=== PATIENT | female | born 1970 | race Caucasian/White ===

== ENCOUNTER → 2017-09-21 | Outpatient (CLI) | payer OTHER ==
--- NOTE | 2017-09-21 12:52 | DIAGNOSTIC IMAGING REPORT ---
R HIP UNILATERAL 2 VIEWS CLINICAL HISTORY: Right hip pain. Recent fall. COMPARISON: None FINDINGS: No acute fracture of the proximal right femur is identified. A fracture of the right inferior pubic ramus is noted as well as a fracture of the medial right pubic bone. Fractures are likely subacute. No additional fractures are identified on this exam. IMPRESSION: 1. Minimally displaced fractures of the right inferior pubic ramus and medial right pubic bone. These fractures are likely subacute. 2. No fracture of the proximal right femur. Electronically signed by: Rodolfo Valerio M.D. 09/21/2017 12:50 PM Dictated Date/Time: 09/21/2017 12:49 PM
--- NOTE | 2017-09-21 12:53 | DIAGNOSTIC IMAGING REPORT ---
L KNEE 3 VIEWS CLINICAL HISTORY: Left knee pain. Recent fall. COMPARISON: None FINDINGS: Alignment of the left knee is anatomic. There is no acute fracture or joint effusion. There is moderate osteophytosis of the left knee with mild medial and patellofemoral compartment joint space narrowing. IMPRESSION: 1. No acute fracture or joint effusion of the left knee. 2. Moderate osteoarthritis of the left knee, most pronounced within the medial and patellofemoral compartments. Electronically signed by: Rodolfo Valerio M.D. 09/21/2017 12:51 PM Dictated Date/Time: 09/21/2017 12:50 PM
== END | disposition home or self-care (01) ==
LOC: C.RAD 11:14
PROVIDERS: ATTEND Internal Medicine
DX: M25.562 Pain in left knee (principal); M25.551 Pain in right hip; S32.501A Unspecified fracture of right pubis, initial encounter for closed fracture; X58.XXXA Exposure to other specified factors, initial encounter; M17.12 Unilateral primary osteoarthritis, left knee

== ENCOUNTER → 2018-05-19 | Outpatient (CLI) | payer OTHER ==
[~2018-05-19] MED LIST: CALC-51 PO; CALC8.5C PO; IBUP-1451 PO; MULT-506 PO
--- NOTE | 2018-05-19 10:56 | DIAGNOSTIC IMAGING REPORT ---
CHEST 2 VIEWS ROUTINE CLINICAL HISTORY: Preoperative evaluation. COMPARISON STUDY: No previous studies for comparison. FINDINGS: Lung volumes are normal. No pneumothorax or pleural effusion is noted. Cardiac size is normal. Mediastinal contours are normal. No evidence for pulmonary edema. There may be old left-sided rib fractures. Surgical clips project over the gastroesophageal junction. IMPRESSION: No acute cardiopulmonary findings. Electronically signed by: Rodolfo Valerio M.D. 05/19/2018 10:54 AM Dictated Date/Time: 05/19/2018 10:53 AM
[2018-05-19 11:09] LABS: BASO % 0.8 %; BASO ABS # 0.03 K/uL (0-0.2); EOS % 3.5 %; EOS ABS # 0.13 K/uL (0-0.5); HEMATOCRIT 36.5 % (37-47); HEMOGLOBIN 11.6 g/dL (12.0-16.0); IG# 0.01 K/uL (0.00-0.02); LYMPH % 40.9 %; MEAN CELL VOLUME 88.8 fL (80-100); MEAN CORPUSCULAR HEMOGLOBIN 28.2 pg (25-34); MEAN CORPUSCULAR HGB CONC 31.8 g/dl (32-36); MEAN PLATELET VOLUME 10.5 fL (7.4-10.4); MONO % 8.2 %; NEUT % 46.3 %; PLATELET COUNT 248 K/uL (130-400); RED CELL DISTRIBUTION WIDTH CV 13.5 % (11.5-14.5); WHITE BLOOD COUNT 3.67 K/uL (4.8-10.8)
[2018-05-19 11:23] LABS: PTT PATIENT 25.2 SECONDS (21.0-31.0)
[2018-05-19 11:47] LABS: BLOOD UREA NITROGEN 14 mg/dl (7-18); CALCIUM 8.1 mg/dl (8.5-10.1); CARBON DIOXIDE 29 mmol/L (21-32); CREATININE 0.59 mg/dl (0.60-1.20); GLUCOSE 71 mg/dl (70-99); POTASSIUM 3.8 mmol/L (3.5-5.1); SODIUM 141 mmol/L (136-145)
== END | disposition home or self-care (01) ==
LOC: C.CPL 09:17
PROVIDERS: ATTEND Orthopaedic Surgery
DX: Z01.810 Encounter for preprocedural cardiovascular examination (principal); Z01.812 Encounter for preprocedural laboratory examination; Z01.818 Encounter for other preprocedural examination

== ENCOUNTER 2019-01-16 09:59 | Inpatient (IN) ==
--- NOTE | 2018-12-16 15:11 | Anesthesiology Consultation ---
Date of Service December 16, 2018 Assessment & Plan (1) Encounter for pre-operative examination: Chart Review Chart Review: Acceptable Risk for Surgery and Patient seen in Pre Admission Testing Teaching & Discussion Instructed NPO after midnight before surgery, except medications with 15 cc of water. Medication instructions provided according to the PAT guidelines. History Surgery Operation Date: 01/16/19 10:00 Proposed Procedures p Bilateral Total Knee Arthroplasty - Augusto Gonzalez DO Height/Weight Height: 5 ft 9 in Weight: 84.4 kg Allergies Allergy/AdvReac Type Severity Reaction Status Date / Time No Known Allergies Allergy Unverified 12/10/18 14:56 Medications Home Medications Medication Instructions Recorded Confirmed Last Taken bupropion HCl [Wellbutrin XL] 300 mg PO QAM 12/10/18 12/10/18 12/10/18 calcium carbonate [Calcium 500] 500 mg PO BID 12/10/18 12/10/18 Unknown citalopram [Celexa] 20 mg PO HS 12/10/18 12/10/18 12/09/18 ferrous sulfate 325 mg PO DAILY 12/10/18 12/10/18 Unknown hydrocodone-acetaminophen 1 - 2 tab PO UD PRN 12/10/18 12/10/18 Unknown ibuprofen [Motrin IB] 800 mg PO UD PRN 12/10/18 12/10/18 Unknown multivitamin [Multiple Vitamins] 1 tab PO DAILY 12/10/18 12/10/18 Unknown ropinirole [Requip] 1 mg PO HS 12/10/18 12/10/18 12/09/18 tramadol 50 mg PO UD PRN 12/10/18 12/10/18 Unknown Past Medical History Medical History Anxiety and depression Low iron Osteoarthritis Restless leg syndrome Past Family History Family History Mother Family history of breast cancer Father Family history of throat cancer Past Surgical History Surgical History Fatty tumor REMOVED R ANKLE History of gastric bypass History of tubal ligation Past Anesthesia History No Hx of Anesthesia Complications and No Family Hx of Anesthesia Complications History of PONV No Motion Sickness Screening History of Motion Sickness: No Social History Smoking Status: Former smoker tobacco type: cigarettes Do You Dip or Chew Tobacco: No Smoking End Date: QUIT 2016 Hx Alcohol Use: No Hx Substance Use: No substance use type: does not use Exercise / Class Metabolic Activity II 4-5 Yardwork/Stairs/Walk up hill (denies CP or SOB, limited by knee pain) Review of Systems Pt denies any recent chest pain, shortness of breath, palpitations, cough, fever or URI. Physical Exam Vital Signs BP: 93/60 (pt states this is baseline) P: 68bpm SPO2: 99% RA T: 98.3 F R: 16 ENMT Mouth: + dentures (FULL UPPER); no chipped teeth and no loose teeth Thyromental Distance: < 3.5 Finger Breadths (3) Mallampati Class: II Neck normal visual inspection; neck extension not limited Respiratory normal respiratory effort Auscultation: lungs clear to auscultation bilaterally Cardiovascular Rate/Rhythm: regular rate and regular rhythm Heart Sounds: no murmur Vessels: no carotid bruit Extremities: no edema Testing Electrocardiogram Date: 12/16/18 Findings: + NSR @ (62 with short OK) Chest X-Ray Date: 05/19/18 Findings: + NAD Laboratory Results 12/16/18 15:52 12/16/18 15:52 Blood Type A Positive 12/16/18 15:52 Antibody Screen NEGATIVE 12/16/18 15:52 PT 10.4 Seconds (9.0-12.0) 12/16/18 15:52 INR 1.0 (0.9-1.1) 12/16/18 15:52 APTT 24.2 Seconds (21.0-31.0) 12/16/18 15:52
--- NOTE | 2018-12-16 15:13 | PAT Medication Instructions ---
Medication Instructions Date of Service December 16, 2018 Home Medications bupropion HCl [Wellbutrin XL] 300 mg PO QAM calcium carbonate [Calcium 500] 500 mg PO BID citalopram [Celexa] 20 mg PO HS ferrous sulfate 325 mg PO DAILY hydrocodone-acetaminophen 1 - 2 tab PO UD PRN ibuprofen [Motrin IB] 800 mg PO UD PRN multivitamin [Multiple Vitamins] 1 tab PO DAILY ropinirole [Requip] 1 mg PO HS tramadol 50 mg PO UD PRN ASK your surgeon for instructions ibuprofen [Motrin IB] 800 mg PO UD PRN STOP taking 24 hours before surgery ropinirole [Requip] 1 mg PO HS DO NOT take the morning of surgery calcium carbonate [Calcium 500] 500 mg PO BID ferrous sulfate 325 mg PO DAILY multivitamin [Multiple Vitamins] 1 tab PO DAILY Take morning of surgery With a small sip of water, OTHERWISE NOTHING TO EAT OR DRINK AFTER MIDNIGHT: bupropion HCl [Wellbutrin XL] 300 mg PO QAM hydrocodone-acetaminophen 1 - 2 tab PO UD PRN (if needed, may be taken up to four hours before surgery) tramadol 50 mg PO UD PRN (if needed, may be taken up to four hours before surgery) Take evening before surgery calcium carbonate [Calcium 500] 500 mg PO BID citalopram [Celexa] 20 mg PO HS hydrocodone-acetaminophen 1 - 2 tab PO UD PRN (if needed) tramadol 50 mg PO UD PRN (if needed) Other Notes If you have any questions please call us at [phone] or [phone] or [phone] or [phone]
[2018-12-16 16:13] LABS: Basophils # (auto) 0.02 K/uL (0-0.2); Basophils % (auto) 0.5 %; Eosinophils % (auto) 2.5 %; Hematocrit (blood only) 33.8 % (37-47); Lymphocytes % (auto) 35.2 %; Mean Corpuscular Hgb Conc 32.5 g/dL (32-36); Mean Corpuscular Volume 90.1 fL (80-100); Monocytes % (auto) 10.1 %; Neutrophils # (auto) 2.06 K/uL (1.4-6.5); Neutrophils % (auto) 51.7 %; Platelet Count 248 K/uL (130-400); RDW Coefficient of Variation 13.5 % (11.5-14.5); RDW Standard Deviation 44.7 fL (36.4-46.3); Red Blood Count 3.75 M/uL (4.2-5.4); White Blood Count 3.98 K/uL (4.8-10.8)
[2018-12-16 16:22] LABS: BUN Creatinine Ratio 32.7 (10-20); Calcium 8.2 mg/dl (8.5-10.1); Creatinine Clr Calc Pharmacy 130.1 ml/min; Est GFR (African American) 123.2; Est GFR (Non-African American) 106.3; Potassium 3.6 mmol/L (3.5-5.1)
[2018-12-16 16:25] LABS: Partial Thromboplastin Ratio 0.9; Partial Thromboplastin Time 24.2 Seconds (21.0-31.0); Prothrombin Time 10.4 Seconds (9.0-12.0)
--- NOTE | 2019-01-15 21:05 | History & Physical Report ---
Date of Service January 15, 2019 Assessment & Plan (1) Primary osteoarthritis of knees, bilateral: We will proceed with bilateral total knee arthroplasties. Postoperatively she will be placed on aspirin for DVT prophylaxis. We talked about her gastric bypass surgery and we feel it is safe to take a baby aspirin. Postoperatively she will be kept overnight for medical management. She plans to have social worker palliative care help determine postoperative nursing care and physical therapy. Present on Admission?: Yes History of Present Illness Chief Complaint: Primary osteoarthritis of bilateral knees Primary Care Provider: JESSICA Hanks is a pleasant 48-year-old female who is been dealing with chronic increasing bilateral knee pain for many years. X-rays and clinical examination have been diagnostic for primary osteoarthritis of both knees. After failing extensive conservative treatment, she is elected to proceed with bilateral total knee arthroplasty. Allergies Allergy/AdvReac Type Severity Reaction Status Date / Time No Known Allergies Allergy Unverified 12/10/18 14:56 Home Medications Home Medications Medication Instructions Recorded Confirmed Type bupropion HCl [Wellbutrin XL] 300 mg PO QAM 12/10/18 12/10/18 History calcium carbonate [Calcium 500] 500 mg PO BID 12/10/18 12/10/18 History citalopram [Celexa] 20 mg PO HS 12/10/18 12/10/18 History ferrous sulfate 325 mg PO DAILY 12/10/18 12/10/18 History hydrocodone-acetaminophen 1 - 2 tab PO UD PRN 12/10/18 12/10/18 History ibuprofen [Motrin IB] 800 mg PO UD PRN 12/10/18 12/10/18 History multivitamin [Multiple Vitamins] 1 tab PO DAILY 12/10/18 12/10/18 History ropinirole [Requip] 1 mg PO HS 12/10/18 12/10/18 History tramadol 50 mg PO UD PRN 12/10/18 12/10/18 History Past Med/Surg History Medical History Anxiety and depression Low iron Osteoarthritis Restless leg syndrome Surgical History Fatty tumor REMOVED R ANKLE History of gastric bypass History of tubal ligation Family History Mother Family history of breast cancer Father Family history of throat cancer Social History Preferred Language: Estonian Communication Ability: Effective Diamond Assorter Required: No Beliefs That Will Affect Care: None Current Living Situation: Other Current Living Situation Comment: LIVES WITH GRANDAUAMY Other Information That Helps Us Care for You: No Feels Safe at Home: Yes Smoking Status: Former smoker Hx Alcohol Use: No Hx Substance Use: No Review of Systems All systems reviewed & are unremarkable except as noted in HPI & below Physical Exam Constitutional: WD/WN, vitals as above Eyes: PERRL, conjunctivae normal, anicteric sclerae ENMT: external ear and nose normal, oropharynx normal Neck: trachea midline, no thyromegaly Respiratory: normal respiratory effort Cardiovascular: RRR, no murmur, no edema Gastrointestinal (Abdomen): normal bowel sounds, soft, nontender, no hepatosplenomegaly Musculoskeletal: On physical examination of both knees, there is a trace effusion. There is near full range of motion and no evidence of instability. There is significant tenderness palpation along the medial and lateral joint lines and over the distal femoral condyles. Psychiatric: A+Ox3, euthymic affect Results & Data Diagnostic Findings Radiographs of both knees demonstrate advanced osteoarthritis with joint space narrowing osteophyte formation and [id number] articulation.
[~2019-01-16 09:59] MED LIST changes: +ACETAMINOPHEN 500 MG TAB PO SCH; +ATROPINE SULFATE 0.1 MG/ML 10ML SYR IV PRN; +BUPIVACAINE 0.5 % 5 MG/1 ML PF 10ML VIAL ONE; -CALC-51 PO; -CALC8.5C PO; +CEFAZOLIN 2000MG 2,000 MG/15 ML SYR IV SCH; +FAMOTIDINE 20 MG TAB PO SCH; +GABAPENTIN 300 MG x 3 PO SCH; -IBUP-1451 PO; +LR 500ML BOLUS, THEN 15ML/HR IV SCH; +LR 60ML/HR IV SCH; -MULT-506 PO; +ONDANSETRON INJ 2 MG/ML 2 ML VIAL IV PRN; +ROPIVACAINE 0.5% 5 MG/ML 30 ML VIAL ONE; +ROPIVACAINE 0.5% HCL/PF 150 MG, BUPIVACAINE 0.5% MPF 30 ML, EPINEPHrine 30MG/30ML (OR U... INFIL SCH; +TRANEXAMIC ACID 1,000 MG **IV Intra-op IV SCH; +TRANEXAMIC ACID 1,000 MG **IV Pre-op IV SCH; +ePHEDrine sulfate 50 MG/ML AMP IV PRN; +fentaNYL citrate 100 MCG/2 ML VIAL IV PRN
[2019-01-16] MEDS ORDERED: MIDAZOLAM HCL 1 MG/ML 2ML VIAL ONE ×2 (10:08→12:30)
[2019-01-16] MEDS ORDERED: LIDOCAINE HCL 2% 2 ML VIAL/AMP(20MG/ML) INFIL ONE (10:08)
[2019-01-16] MEDS ORDERED: PROPOFOL IV EMULSION 10 MG/ML 20 ML VIAL IV ONE ×5 (10:08→15:29)
[2019-01-16] MEDS ORDERED: fentaNYL citrate 100 MCG/2 ML VIAL ONE ×4 (10:08→15:45)
--- NOTE | 2019-01-16 11:08 | History & Physical Bridge Note ---
Date of Service January 16, 2019 History & Physical Bridge Note I have examined the patient, reviewed the History & Physical and in the interval since the performance of the History & Physical I have noted the following changes of clinical significance: no changes noted
[2019-01-16] MEDS ORDERED: POVIDONE-IODINE OP SOLN 30 ML BTL ONE (11:42)
[2019-01-16] MEDS ORDERED: ONDANSETRON INJ 2 MG/ML 2 ML VIAL ONE (12:56)
[2019-01-16] MEDS: ORTHO JOINT ANESTHETIC ONE ×2 (13:40→15:09)
[2019-01-16] MEDS ORDERED: PHENYLEPHRINE 100MCG/ML 5ML SYR ONE (14:20)
--- NOTE | 2019-01-16 15:32 | Operative Report ---
Post Operative Report Pre & Post Diagnosis Operation Date: 01/16/19 12:55 Pre-Op Diagnosis: Bilateral Knee Degenerative Joint Disease Post-Op Diagnosis: Bilateral Knee Degenerative Joint Disease Procedure Operation Date: 01/16/19 12:55 Actual Procedures p Bilateral Total Knee Arthroplasty(Bilateral) - Augusto Gonzalez DO Surgeon Augusto Gonzalez DO Workforce Development Assistant Augusto Tavares PAC Estimated Blood Loss 50 Findings Consistent with Post-Op Diagnosis Specimens Right and left femoral and tibial bone Complications none Disposition Disposition: Recovery Room Indications Margie is a pleasant 48-year-old female presented my office with complaints of chronic increasing bilateral knee pain. X-rays and clinical examination were diagnostic for primary osteoarthritis of both knees. After failing years of conservative treatment including multiple injections, she elected to proceed with bilateral total knee arthroplasties. Description of Procedure Implants used for the right knee: I used a [employer] Vanguard total knee arthroplasty system with a size 75 femur, 71 tibia, 28 patella, and a size 10 PS polyethylene bearing. All components were cemented in place with Palacos G cement. The patient arrived [facility] for the above procedure. There were seen in the preoperative holding area and the operative extremity was identified and signed. There were given a preoperative antibiotic, a spinal anesthetic and an adductor nerve block. There were taken back to the operating room and laid on the table in supine position. There were given basic sedation. The operative knee was then prepped and draped in sterile fashion. A timeout was done, and the patient and the operative extremity was properly identified. A midline incision was made directly over the patella. Dissection was taken down to the extensor mechanism. A subvastus arthrotomy was used. The medial retinaculum was released and the fat pad was mostly left intact. The knee was flexed and the ACL, PCL, and meniscus were removed. A drill was sent down the center of the femoral canal followed by an intramedullary elieser. Off that elieser a distal femoral cutting block was placed. 9 mm was resected off the distal femur at 5 of valgus. A posterior referencing AP sizing guide was then placed on the distal femur. The femur measured to be a size 75. 2 drill holes were placed in 3 of external rotation. A 4-in-1 cutting block was then impacted into place. Anterior posterior and chamfer cuts were then made. The posterior stabilizing box guide was then impacted into place and the box was resected for the posterior stabilizing component. The proximal tibia was then exposed. A drill was sent down the center of the tibial canal followed by an intramedullary elieser. Off that elieser a proximal tibial resection guide was placed. The proximal tibia was then resected. The tibia measured to be a size 71. The tibial plate was then placed in the appropriate rotation and the tibia was punched. The posterior aspect of the knee was then opened up and any additional meniscus fragments and osteophytes were removed. Trial components were then placed. I used a size 10 PS polyethylene insert. The knee was brought through a full range of motion and felt to be stable. The patella was then everted and 8 mm was resected off the posterior aspect of the patella. The patella measured to be a size 28. 3 peg holes were then drilled. A trial patella was placed. The knee was once again brought through a full range of motion and felt to be stable. Trial components were then removed. The surrounding soft tissues were injected with 100 cc of an orthopedic pain control cocktail. All components were then cemented into place with Palacos G cement. The final polyethylene insert was then snapped into place and the anterior bar was locked. Once cement was dry the tourniquet was deflated. Hemostasis was obtained. A dilute betadyne lavage was then done for 3 minutes. The joint was then irrigated with normal saline solution. The subvastus arthrotomy was then closed with #1 Vicryl suture. The skin was closed with 2-0 Vicryl, 3-0V lock suture, and lidia. A soft compressive dressing was placed. The patient was then transferred to a hospital bed and taken to the postanesthesia care unit in stable condition. They tolerated the procedure well. Implants used for the left knee: I used a [employer]og[employer] total knee arthroplasty system with a size 72.5 femur, 71 tibia, 28 patella, and a size 12 PS polyethylene bearing. All components were cemented in place with Palacos G cement. A midline incision was made directly over the patella. Dissection was taken down to the extensor mechanism. A subvastus arthrotomy was used. The medial retinaculum was released and the fat pad was mostly left intact. The knee was flexed and the ACL, PCL, and meniscus were removed. A drill was sent down the center of the femoral canal followed by an intramedullary elieser. Off that elieser a distal femoral cutting block was placed. 9 mm was resected off the distal femur at 5 of valgus. A posterior referencing AP sizing guide was then placed on the distal femur. The femur measured to be a size 72.5. 2 drill holes were placed in 3 of external rotation. A 4-in-1 cutting block was then impacted into place. Anterior posterior and chamfer cuts were then made. The posterior stabilizing box guide was then impacted into place and the box was resected for the posterior stabilizing component. The proximal tibia was then exposed. A drill was sent down the center of the tibial canal followed by an intramedullary elieser. Off that elieser a proximal tibial resection guide was placed. The proximal tibia was then resected. The tibia measured to be a size 71. The tibial plate was then placed in the appropriate rotation and the tibia was punched. The posterior aspect of the knee was then opened up and any additional meniscus fragments and osteophytes were removed. Trial components were then placed. I used a size 12 PS polyethylene insert. The knee was brought through a full range of motion and felt to be stable. The patella was then everted and 8 mm was resected off the posterior aspect of the patella. The patella measured to be a size 28. 3 peg holes were then drilled. A trial patella was placed. The knee was once again brought through a full range of motion and felt to be stable. Trial components were then removed. The surrounding soft tissues were injected with 100 cc of an orthopedic pain control cocktail. All components were then cemented into place with Palacos G cement. The final polyethylene insert was then snapped into place and the anterior bar was locked. Once cement was dry the tourniquet was deflated. Hemostasis was obtained. A dilute betadyne lavage was then done for 3 minutes. The joint was then irrigated with normal saline solution. The subvastus arthrotomy was then closed with #1 Vicryl suture. The skin was closed with 2-0 Vicryl, 3-0V lock suture, and lidia. A soft compressive dressing was placed. The patient was then transferred to a hospital bed and taken to the postanesthesia care unit in stable condition. They tolerated the procedure well. I attest to the content of the Intraoperative Record and any orders documented therein. Any exceptions are noted below.
--- NOTE | 2019-01-16 16:18 | Anesthesiology Progress Note ---
Date of Service January 16, 2019 Anesthesia Post Procedure Vital Signs Vital Signs: Temp Pulse Pulse Resp BP Pulse Ox 01/16/19 16:10 61 15 91/59 L 100 01/16/19 16:01 36.0 C L 71 14 86/63 L 97 01/16/19 10:32 36.7 C 63 16 110/72 100 Notes Mental Status: alert / awake / arousable Patient Amnestic to Procedure: Yes Nausea / Vomiting: adequately controlled Pain: adequately controlled Airway Patency, RR, SpO2: stable & adequate BP & HR: stable & adequate Hydration State: stable & adequate Neuraxial Anesthesia: was administered and sensory block is resolving Anesthetic Complications: no major complications apparent and Pt Satisfied with anesthetic care
--- NOTE | 2019-01-16 16:23 | XRay Report ---
XR knee RT 2V routine CLINICAL HISTORY: Surgical Post Op COMPARISON: Right knee radiographs April 21, 2012. FINDINGS: Alignment of the right knee arthroplasty is anatomic. There is no fracture or unexpected r adiopaque foreign body. There are skin lidia. IMPRESSION: Expected findings following total right knee arthroplasty. Electronically signed by: Rodolfo Valerio M.D. 01/16/2019 4:21 PM
--- NOTE | 2019-01-16 16:25 | XRay Report ---
XR knee LT 2V routine CLINICAL HISTORY: Surgical Post Op COMPARISON: Left knee radiographs September 21, 2017. FINDINGS: Alignment of the left knee arthroplasty is anatomic. There is no fracture or unexpected ra diopaque foreign body. There are skin lidia. IMPRESSION: Expected findings following total left knee arthroplasty. Electronically signed by: Rodolfo Valerio M.D. 01/16/2019 4:23 PM
[2019-01-16] MEDS ORDERED: HYDROmorphone INJ 0.5 MG/0.5 ML SYR IV PRN (16:37)
[2019-01-16] MEDS ORDERED: ONDANSETRON INJ 2 MG/ML 2 ML VIAL IV PRN (16:37)
[2019-01-16] MEDS ORDERED: METOCLOPRAMIDE HCL INJ 5 MG/ML 2 ML VIAL IV PRN (16:37)
[2019-01-16] MEDS ORDERED: MAGNESIUM HYDROXIDE SUSP 30 ML UDC PO PRN (16:37)
[2019-01-16] MEDS ORDERED: BISACODYL 10 MG SUPP PR PRN (16:37)
[2019-01-16] MEDS ORDERED: NALOXONE HCL 0.4 MG/1 ML VIAL/CARP IV PRN (16:37)
[2019-01-16] MEDS: SODIUM CHLORIDE 0.9% 1000ML 1,000 ML IV SCH (18:12)
[2019-01-16] MEDS: KETOROLAC TROMETHAMINE 15 MG/ML VIAL IV SCH ×2 (18:14→23:30)
[2019-01-16] MEDS: CITALOPRAM 20 MG TAB PO SCH (20:48)
[2019-01-16] MEDS: ROPINIROLE HCL 1 MG TABLET PO SCH (20:48)
[2019-01-16] MEDS: SENNA 8.6 MG TAB PO SCH (20:48)
[2019-01-16] MEDS: ASPIRIN 81 MG ECTAB PO SCH (20:48)
[2019-01-16] MEDS: CEFAZOLIN 2000MG 2,000 MG/15 ML SYR IV SCH (20:48)
[2019-01-16] MEDS: DOCUSATE SODIUM 100 MG CAP PO SCH (20:48)
[2019-01-16] MEDS: ACETAMINOPHEN 500 MG TAB PO SCH (21:17)
[2019-01-17] MEDS: OXYCODONE HCL IR 5 MG TAB (IMMEDIATE RELEASE) PO PRN ×4 (02:31→23:25)
[2019-01-17] MEDS: CEFAZOLIN 2000MG 2,000 MG/15 ML SYR IV SCH (03:45)
[2019-01-17] MEDS: SODIUM CHLORIDE 0.9% 1000ML 1,000 ML IV SCH (04:17)
[2019-01-17] MEDS: ACETAMINOPHEN 500 MG TAB PO SCH ×3 (05:42→22:10)
[2019-01-17] MEDS: KETOROLAC TROMETHAMINE 15 MG/ML VIAL IV SCH ×3 (05:42→17:41)
[2019-01-17 06:01] LABS: Hematocrit (blood only) 27.8 % (37-47); Hemoglobin 9.2 g/dL (12.0-16.0); Mean Corpuscular Hgb Conc 33.1 g/dL (32-36); Mean Corpuscular Volume 90.6 fL (80-100); Mean Platelet Volume 9.6 fL (7.4-10.4); Platelet Count 173 K/uL (130-400); RDW Coefficient of Variation 13.3 % (11.5-14.5); RDW Standard Deviation 43.9 fL (36.4-46.3); Red Blood Count 3.07 M/uL (4.2-5.4)
[2019-01-17 06:32] LABS: BUN Creatinine Ratio 25.4 (10-20); Calcium 7.3 mg/dl (8.5-10.1); Creatinine Clr Calc Pharmacy 139.7 ml/min; Est GFR (Non-African American) 108.7; Potassium 3.9 mmol/L (3.5-5.1)
[2019-01-17] MEDS: BuPROPion XL 300 MG TABCR PO SCH (08:39)
[2019-01-17] MEDS: ASPIRIN 81 MG ECTAB PO SCH ×2 (08:39→21:00)
[2019-01-17] MEDS: DOCUSATE SODIUM 100 MG CAP PO SCH ×2 (08:39→21:01)
[2019-01-17] MEDS: MULTIVITAMIN TAB PO SCH (08:39)
--- NOTE | 2019-01-17 09:18 | Orthopedic Progress Note ---
Date of Service January 17, 2019 Assessment & Plan (1) Primary osteoarthritis of knees, bilateral: Overall she is doing fairly well. She will be seen by physical therapy this morning for ambulation and range of motion exercises. Her pain is well controlled at this time. Tomorrow will change the dressings and likely discharge her to home. She is on aspirin for DVT prophylaxis. Present on Admission?: Yes Anushka Hanson was seen and examined at bedside this morning. Overall she is doing very well. She is not having too much pain in the knees. They are a little bit sore. She is been up and ambulating to the bathroom. She is waiting for physical therapy this morning. She has no complaints. Physical Exam Vital Signs (Past 24 Hours): Last Vital Signs Temp 37 C 01/17/19 07:13 Pulse 81 01/17/19 07:13 Resp 18 01/17/19 07:13 BP 92/54 L 01/17/19 07:13 Pulse Ox 95 01/17/19 07:13 Musculoskeletal: On physical examination of both knees, the dressings are clean and dry. She has active dorsiflexion and plantar flexion of both ankles. She still is a little bit of numbness in her right foot from the block. Results & Data Laboratory Results H & H 12/16/18 01/17/19 Range/Units 15:52 05:45 Hgb 11.0 L 9.2 L (12.0-16.0) g/dL Hct 33.8 L 27.8 L (37-47) % Coagulation 12/16/18 Range/Units 15:52 INR 1.0 (0.9-1.1) Diagnostic Findings X-rays postoperatively of both knees show the prosthesis to be in anatomic alignment without any evidence of fracture, dislocation, or loosening.
--- NOTE | 2019-01-17 13:25 | Anesthesiology Progress Note ---
Date of Service January 17, 2019 Anesthesia Post Procedure Vital Signs Vital Signs: Temp Pulse Pulse Resp BP BP Pulse Ox 01/17/19 10:48 37.1 C 88 18 90/56 L 94 01/17/19 07:13 37 C 81 18 83/50 L 92/54 L 95 01/17/19 03:50 36.6 C 74 16 91/52 L 97 01/16/19 23:44 36.8 C 83 15 94/57 L 95 01/16/19 19:30 36.7 C 86 18 101/65 95 01/16/19 18:30 36.5 C 79 18 106/68 98 01/16/19 17:30 36.3 C L 62 18 105/71 97 01/16/19 17:12 36.3 C L 60 18 105/70 99 01/16/19 16:30 36.3 C L 66 18 96/59 L 97 01/16/19 16:20 36.3 C L 59 L 14 97/62 L 96 01/16/19 16:10 61 15 91/59 L 100 01/16/19 16:01 36.0 C L 71 14 86/63 L 97 Pain Intensity Right Knee: Pain Intensity: 7 Left Knee: Pain Intensity: 2 Notes Mental Status: alert / awake / arousable Patient Amnestic to Procedure: Yes Nausea / Vomiting: adequately controlled Pain: adequately controlled Airway Patency, RR, SpO2: stable & adequate BP & HR: stable & adequate Hydration State: stable & adequate Neuraxial Anesthesia: was administered and sensory block resolved Anesthetic Complications: no major complications apparent and Pt Satisfied with anesthetic care
[2019-01-17] MEDS ORDERED: TRAMADOL HCL 50 MG TABLET PO PRN (13:34)
[2019-01-17] MEDS: ROPINIROLE HCL 1 MG TABLET PO SCH ×2 (14:39→20:59)
[2019-01-17] MEDS: SENNA 8.6 MG TAB PO SCH (21:00)
[2019-01-17] MEDS: CITALOPRAM 20 MG TAB PO SCH (21:01)
[2019-01-18] MEDS: KETOROLAC TROMETHAMINE 15 MG/ML VIAL IV SCH ×3 (00:20→12:01)
[2019-01-18] MEDS: ACETAMINOPHEN 500 MG TAB PO SCH ×2 (05:16→14:39)
[2019-01-18] MEDS: OXYCODONE HCL IR 5 MG TAB (IMMEDIATE RELEASE) PO PRN ×3 (05:57→15:59)
[2019-01-18 06:05] LABS: Basophils # (auto) 0.01 K/uL (0-0.2); Basophils % (auto) 0.1 %; Eosinophils # (auto) 0.09 K/uL (0-0.5); Eosinophils % (auto) 1.2 %; Hematocrit (blood only) 27.2 % (37-47); Hemoglobin 8.9 g/dL (12.0-16.0); Immature Granulocytes # (auto) 0.01 K/uL (0.00-0.02); Immature Granulocytes % (auto) 0.1 %; Lymphocytes # (auto) 0.81 K/uL (1.2-3.4); Lymphocytes % (auto) 10.5 %; Mean Corpuscular Hgb Conc 32.7 g/dL (32-36); Mean Corpuscular Volume 91.3 fL (80-100); Mean Platelet Volume 9.5 fL (7.4-10.4); Monocytes # (auto) 0.86 K/uL (0.11-0.59); Monocytes % (auto) 11.2 %; Neutrophils # (auto) 5.92 K/uL (1.4-6.5); Neutrophils % (auto) 76.9 %; Platelet Count 175 K/uL (130-400); RDW Coefficient of Variation 13.7 % (11.5-14.5); RDW Standard Deviation 45.6 fL (36.4-46.3); Red Blood Count 2.98 M/uL (4.2-5.4)
[2019-01-18 06:32] LABS: RBC Morphology Unremarkable
--- NOTE | 2019-01-18 09:19 | Orthopedic Progress Note ---
Date of Service January 18, 2019 Assessment & Plan (1) Primary osteoarthritis of knees, bilateral: Overall she is doing okay. She will be seen by physical therapy today for ambulation. She was requesting discharge to home today. I told her that that is unlikely at this time. I want to see how she does with physical therapy first. If she does very well with physical therapy then we can consider sending her home later this afternoon. More likely, we will keep her throughout the day today and send her home tomorrow. We will see how she does today with therapy. We will continue oxycodone and tramadol for pain control. She is on aspirin for DVT prophylaxis. Present on Admission?: Yes Anushka Hanson was seen and examined at bedside this morning. She is been slow to ambulate with physical therapy. She was just about to leave the room yesterday when she was lightheaded and had a panic attack. They slowly brought her back to bed. Later in the day she was able to ambulate to a chair and sit up in a chair for most the day. Overall she is feeling better. We have had difficulty balancing pain medications with her hypotension. Overall she is feeling okay today. And she is looking forward to getting some more physical therapy. Physical Exam Vital Signs (Past 24 Hours): Last Vital Signs Temp 36.8 C 01/18/19 07:10 Pulse 70 01/18/19 07:10 Resp 18 01/18/19 07:10 BP 94/57 L 01/18/19 07:10 Pulse Ox 96 01/18/19 07:10 Musculoskeletal: On physical examination of both knees, the dressings have been changed. Her legs are out in full extension. She has [place] hose stockings in place. She is active dorsiflexion and plantar flexion of both ankles. Sensation is intact throughout. Results & Data Laboratory Results H & H 12/16/18 01/17/19 01/18/19 Range/Units 15:52 05:45 05:53 Hgb 11.0 L 9.2 L 8.9 L (12.0-16.0) g/dL Hct 33.8 L 27.8 L 27.2 L (37-47) % Coagulation 12/16/18 Range/Units 15:52 INR 1.0 (0.9-1.1)
[2019-01-18] MEDS: ROPINIROLE HCL 1 MG TABLET PO SCH (09:25)
[2019-01-18] MEDS: MULTIVITAMIN TAB PO SCH (09:26)
[2019-01-18] MEDS: ASPIRIN 81 MG ECTAB PO SCH (09:27)
[2019-01-18] MEDS: BuPROPion XL 300 MG TABCR PO SCH (09:29)
[2019-01-18] MEDS: DOCUSATE SODIUM 100 MG CAP PO SCH (09:29)
[2019-01-18 15:23] VITALS: TEMP 99.9; O2SAT 93
[2019-01-18 15:42] VITALS: BP 93/57; PULSE 84
--- NOTE | 2019-01-18 19:46 | Discharge Summary ---
Date of Service January 18, 2019 Admission HPI Per Admitting Provider Davin is a pleasant 48-year-old female who is been dealing with chronic increasing bilateral knee pain for many years. X-rays and clinical examination have been diagnostic for primary osteoarthritis of both knees. After failing extensive conservative treatment, she is elected to proceed with bilateral total knee arthroplasty. Specialty Data Orthopedic H & H 12/16/18 01/17/19 01/18/19 Range/Units 15:52 05:45 05:53 Hgb 11.0 L 9.2 L 8.9 L (12.0-16.0) g/dL Hct 33.8 L 27.8 L 27.2 L (37-47) % Coagulation 12/16/18 Range/Units 15:52 INR 1.0 (0.9-1.1) Discharge Data Consultations 01/16/19 16:37 Consult Case Management - Discharge Planning Routine Procedures Performed Operation Date: 01/16/19 12:55 Actual Procedures p Bilateral Total Knee Arthroplasty(Bilateral) - Augusto Gonzalez DO Hospital Course (1) Primary osteoarthritis of knees, bilateral: On January 16, 2019: Appeared at [facility] and underwent bilateral total knee arthroplasties without complication. Postoperatively she was started on aspirin for DVT prophylaxis and discharged to general orthopedic floors. On postop day #1 she was doing fairly well. She was a little hypotensive but her H&H was within normal limits. She was only able to ambulate minimally with physical therapy. She was feeling a little bit nauseous and lightheaded throughout the day. Her pain was relatively well controlled. On postop day #2 she was feeling much better. She was able to ambulate well with physical therapy and able to do stairs. She was not taking as many pain medications on day #2. She was requesting return to home. Under the guidance of physical therapy she was discharged to home. She will be on aspirin for DVT prophylaxis and given oxycodone for pain control. She will follow-up with orthopedics in 2 weeks. Discharge Instructions Home Medications Medication Instructions Recorded Confirmed bupropion HCl [Wellbutrin XL] 300 mg PO QAM 12/10/18 01/16/19 calcium carbonate [Calcium 500] 500 mg PO BID 12/10/18 01/16/19 citalopram [Celexa] 20 mg PO HS 12/10/18 01/16/19 ferrous sulfate 325 mg PO DAILY 12/10/18 01/16/19 ibuprofen [Motrin IB] 800 mg PO UD PRN 12/10/18 01/16/19 multivitamin [Multiple Vitamins] 1 tab PO DAILY 12/10/18 01/16/19 ropinirole [Requip] 1 mg PO HS 12/10/18 01/16/19 tramadol 50 mg PO UD PRN 12/10/18 01/16/19 Previous Rx's Medication Instructions Recorded aspirin [Ecotrin Low Strength] 81 mg PO BID #84 tab 01/18/19 oxycodone 5 - 10 mg PO Q4H PRN #40 tab 01/18/19
== END 2019-01-18 16:43 | disposition home health service (06) | DRG 462 ==
LOC: ASU 09:59 → 3E 15:34

== ENCOUNTER 2021-06-27 09:40 | Observation (INO) ==
--- NOTE | 2021-06-01 21:37 | PAT Medication Instructions ---
Medication Instructions Date of Service June 01, 2021 Home Medications Medication Instructions Recorded hydrocodone 5 mg-acetaminophen 325 1 tab PO Q6H PRN #20 tab 11/23/20 mg tablet ([place]) Wheeled Walker #1 ea 05/30/21 citalopram 20 mg tablet (Celexa) 20 mg PO HS multivitamin (Multiple Vitamins) 1 tab PO QAM ropinirole 1 mg tablet (Requip) 1 mg PO HS tramadol 50 mg tablet 50 mg PO UD PRN hydrocodone 5 mg-acetaminophen 325 mg tablet ([place]) 1 tab PO Q6H PRN buspirone 5 mg tablet 10 mg PO QAM bupropion HCl 300 mg 24 hr tablet, extended release (Wellbutrin XL) 300 mg PO HS ferrous sulfate 142 mg (45 mg iron) tablet,extended release ([place]) 284 mg PO QAM DO NOT take the morning of surgery multivitamin (Multiple Vitamins) 1 tab PO QAM ferrous sulfate 142 mg (45 mg iron) tablet,extended release (Slow Fe) 284 mg PO QAM Take morning of surgery With a small sip of water, OTHERWISE NOTHING TO EAT OR DRINK AFTER MIDNIGHT: tramadol 50 mg tablet 50 mg PO UD PRN (okay to take up to 4 hours prior to surgery if needed) hydrocodone 5 mg-acetaminophen 325 mg tablet ([place]) 1 tab PO Q6H PRN (okay to take up to 4 hours prior to surgery if needed) buspirone 5 mg tablet 10 mg PO QAM Take evening before surgery citalopram 20 mg tablet (Celexa) 20 mg PO HS ropinirole 1 mg tablet (Requip) 1 mg PO HS tramadol 50 mg tablet 50 mg PO UD PRN (if needed) hydrocodone 5 mg-acetaminophen 325 mg tablet ([place]) 1 tab PO Q6H PRN (if needed) bupropion HCl 300 mg 24 hr tablet, extended release (Wellbutrin XL) 300 mg PO HS Other Notes If you have any questions please call us at [phone] or [phone] or [phone] or [phone]
--- NOTE | 2021-06-06 10:25 | Anesthesiology Consultation ---
Date of Service June 06, 2021 Assessment & Plan (1) Encounter for pre-operative examination: - COVID screening: Per assessment on 06/06: Travel screen negative, no known COVID-19 positive contacts or current COVID-19 related symptoms. Surgeon arrang ing preop COVID testing. Awaiting results. Patient not vaccinated and does not wear mask in public. Education provided. To consider further COVID testing AM DOS based on high-risk screening. - S/P B/L TKA (01/16/19): SABx1 attempt at L4-L5 + PNB at [facility] - Post-operative course: Per patient, Dr. Gonzalez spoke to her about either option of going home same day or at least staying overnight. She states at this point, plan to at least stay overnight unless told otherwise by surgeon. If decision changes to same day request, patient would medically be an acceptable candidate for outpatient joint pathway depending on perioperative course as long as surgeon deems procedure is not too complex for outpatient joint pathway from their perspective. Chart Review Chart Review: Acceptable Risk for Surgery and Patient seen in Pre Admission Testing Teaching & Discussion Pre-Anesthesia Teaching/Discussion Notes: Instructed NPO after midnight before surgery,except medications with 15 cc of water. Medication instructions provided according to the PAT guidelines. History Surgery Operation Date: 06/27/21 07:00 Proposed Procedures p Left Knee Revision Total Knee Arthroplasty - Augusto Gonzalez, Height/Weight Height: 5 ft 9.5 in Weight: 76.7 kg Allergies Allergy/AdvReac Type Severity Reaction Status Date / Time No Known Allergies Allergy Verified 05/31/21 15:38 Medications Home Medications Medication Instructions Recorded Confirmed Last Taken citalopram 20 mg tablet (Celexa) 20 mg PO HS 12/10/18 05/31/21 01/15/19 07:00 multivitamin (Multiple Vitamins) 1 tab PO QAM 12/10/18 05/31/21 01/15/19 07:00 ropinirole 1 mg tablet (Requip) 1 mg PO HS 12/10/18 05/31/21 01/14/19 21:00 tramadol 50 mg tablet 50 mg PO UD PRN 12/10/18 05/31/21 01/15/19 07:00 hydrocodone 5 mg-acetaminophen 325 1 tab PO Q6H PRN #20 tab 11/23/20 05/31/21 Unknown mg tablet ([place]) buspirone 5 mg tablet 10 mg PO QAM 11/25/20 05/31/21 Unknown Wheeled Walker #1 ea 05/30/21 05/30/21 Unknown bupropion HCl 300 mg 24 hr tablet, 300 mg PO HS 05/31/21 05/31/21 Unknown extended release (Wellbutrin XL) ferrous sulfate 142 mg (45 mg 284 mg PO QAM 05/31/21 05/31/21 Unknown iron) tablet,extended release (Slow Fe) Past Medical History Medical History (Updated 06/06/21 @ 14:48 by Yazmin Bliss) Anxiety and depression Chronic anemia under surveillance by PCP, hgb typically in the low 10's per PCP Low iron Osteoarthritis Restless leg syndrome Exercise / Class Metabolic Activity III < 4 Walking/Shop/Light housework Past Family History Family History Mother Family history of breast cancer Father Family history of throat cancer Other No family history of adverse response to anesthesia Past Surgical History Surgical History Fatty tumor Right ankle removal History of bilateral knee arthroplasty B/L TKA (01/16/19): SABx1 attempt at L4-L5 + PNB at [facility] History of gastric bypass 2010 History of tubal ligation Past Anesthesia History No Hx of Anesthesia Complications and No Family Hx of Anesthesia Complications History of PONV No Hx of PONV and No Hx of Motion Sickness Social History Smoking Status: Current every day smoker tobacco type: cigarettes Smoking cigarettes per day: 1/2 PPD x 30 years (intermittent) Do You Dip or Chew Tobacco: No Hx Alcohol Use: No Hx Substance Use: No substance use type: does not use Review of Systems Patient denies chest pain, shortness of breath, fever, chills, cough, wheezing, palpitations. Physical Exam Vital Signs VITALS BP 96/60 (per pt, BP typically low 100s/50s) P 79 TEMP WNL SP02 99%RA RESP 16 PHYSICAL Full cervical extension range of motion. Full TMJ range of motion. TMD 3 finger breaths Mallampati Score 2 Dentition: full dentures upper/lower Lungs: clear throughout to auscultation Cardiac: regular rate and rhythm, no murmurs noted Spine: normal Carotid arteries: negative bruit Extremities: no edema Lab Results Anesthesia Preop Results Results Anesthesia Widget: WBC 4.08 K/uL (4.8-10.8) L 06/06/21 Hgb 9.8 g/dL (12.0-16.0) L 06/06/21 Hct 30.7 % (37-47) L 06/06/21 Plt 284 K/uL (130-400) 06/06/21 Na 138 mmol/L (136-145) 06/06/21 K 3.8 mmol/L (3.5-5.1) 06/06/21 Cl 107 mmol/L (98-107) 06/06/21 CO2 27 mmol/L (21-32) 06/06/21 BUN 16 mg/dl (7-18) 06/06/21 Creat 0.58 mg/dl (0.6-1.2) L 06/06/21 Glucose Level 66 mg/dl (70-99) L 06/06/21 PT 10.3 Seconds (9.0-12.0) 06/06/21 PTT 24.5 Seconds (21.0-31.0) 06/06/21 INR 1.0 (0.9-1.1) 06/06/21 Blood Type A Positive 06/06/21 Antibody Screen NEGATIVE 06/06/21 Testing Electrocardiogram Date: 06/06/21 NSR at 70bpm. Chest X-Ray Date: 06/06/21 FINDINGS: No pneumothorax. No pleural effusions. The heart is normal in size. No evidence for pulmonary edema. Increased markings within the lung bases is likely due to overlapping breast tissue. Otherwise, no focal lung consolidations to suggest pneumonia. IMPRESSION: No acute process.
--- NOTE | 2021-06-26 12:29 | History & Physical Report ---
Date of Service June 26, 2021 Assessment & Plan (1) Loosening of knee joint prosthesis: We will proceed with a revision left knee replacement. She already had infection markers drawn which were negative. Postoperatively we will keep her overnight in the hospital for postoperative medical management. We will do aspirin for DVT prophylaxis postoperatively and she plans to use home health upon discharge. History of Present Illness Chief Complaint: Aseptic loosening of the left knee. Primary Care Provider: Amanda Bustamante PA-C Margie is a pleasant 50-year-old female who underwent bilateral knee replacements in December 2018. She initially did very well postoperatively. She is back to full activities. Then she began having left knee pain and noticing a varus deformity. X-rays have shown loosening collapse of the tibial plateau. After failing conservative treatment, she elected to proceed with a left revision knee replacement surgery.. Allergies Allergy/AdvReac Type Severity Reaction Status Date / Time No Known Allergies Allergy Verified 05/31/21 15:38 Home Medications Medication Instructions Recorded Confirmed Type citalopram 20 mg tablet (Celexa) 20 mg PO HS 12/10/18 05/31/21 History multivitamin (Multiple Vitamins) 1 tab PO QAM 12/10/18 05/31/21 History ropinirole 1 mg tablet (Requip) 1 mg PO HS 12/10/18 05/31/21 History tramadol 50 mg tablet 50 mg PO UD PRN 12/10/18 05/31/21 History hydrocodone 5 mg-acetaminophen 325 1 tab PO Q6H PRN #20 tab 11/23/20 05/31/21 Rx mg tablet ([place]) buspirone 5 mg tablet 10 mg PO QAM 11/25/20 05/31/21 History Wheeled Walker #1 ea 05/30/21 05/30/21 Rx bupropion HCl 300 mg 24 hr tablet, 300 mg PO HS 05/31/21 05/31/21 History extended release (Wellbutrin XL) ferrous sulfate 142 mg (45 mg 284 mg PO QAM 05/31/21 05/31/21 History iron) tablet,extended release ([place]) Past Med/Surg History Medical History Anxiety and depression Chronic anemia under surveillance by PCP, hgb typically in the low 10's per PCP Low iron Osteoarthritis Restless leg syndrome Surgical History Fatty tumor Right ankle removal History of bilateral knee arthroplasty B/L TKA (01/16/19): SABx1 attempt at L4-L5 + PNB at [facility] History of gastric bypass 2010 History of tubal ligation Family History Mother Family history of breast cancer Father Family history of throat cancer Other No family history of adverse response to anesthesia Social History Smoking Status: Current every day smoker Cigarettes Per Day: 1/2 PPD x 30 years (intermittent); Second Hand Exposure: No; Hx Alcohol Use: No Hx Substance Use: No Preferred Language: Welsh Communication Ability: Effective Trainman Required: No Beliefs That Will Affect Care: None Current Living Situation: Family Current Living Situation Comment: Lives with granddaughter Feels Safe at Home: Yes Assistive Devices: Contacts, Denture - Upper, Denture - Lower and Glasses Review of Systems All systems reviewed & are unremarkable except as noted in HPI & below. Physical Exam On physical examination of the left knee, she has a significant varus deformity. She has instability and pain over the tibial plateau.. Constitutional WD/WN, vitals as above Eyes PERRL, conjunctivae normal, anicteric sclerae ENMT external ear and nose normal, oropharynx normal Neck trachea midline, no thyromegaly Respiratory normal respiratory effort Cardiovascular RRR, no murmur, no edema Gastrointestinal (Abdomen) normal bowel sounds, soft, nontender, no hepatosplenomegaly Psychiatric A+Ox3, euthymic affect Results & Data Results & Data Laboratory Results . Diagnostic Findings X-rays of the left knee show collapse of the medial tibial plateau.. PG Care Time/CCT Total # of Minutes Spent Total Time Spent with Patient: Total time spent is greater than 50% in coordination of care (as documented) at patient's floor/unit and/or counseling patient: Coding Level of Care Code None Diagnoses Loosening of knee joint prosthesis T84.038A; Z96.659
[~2021-06-27 09:40] MED LIST changes: -ATROPINE SULFATE 0.1 MG/ML 10ML SYR IV PRN; +BUPIVACAINE 0.25% 30 ML VIAL ONE; -CEFAZOLIN 2000MG 2,000 MG/15 ML SYR IV SCH; -GABAPENTIN 300 MG x 3 PO SCH; +GABAPENTIN 600 MG DOSE PO SCH; -ONDANSETRON INJ 2 MG/ML 2 ML VIAL IV PRN; -ROPIVACAINE 0.5% 5 MG/ML 30 ML VIAL ONE; -ROPIVACAINE 0.5% HCL/PF 150 MG, BUPIVACAINE 0.5% MPF 30 ML, EPINEPHrine 30MG/30ML (OR U... INFIL SCH; +ROPIVACAINE 0.5% HCL/PF 150 MG, BUPIVACAINE 0.75% MPF 20 ML, EPINEPHrine 30MG/30ML (OR ... INSTIL SCH; +ceFAZolin 2000MG 2,000 MG/15 ML SYR IV SCH; +dexAMETHasone 4 MG TAB PO SCH; -ePHEDrine sulfate 50 MG/ML AMP IV PRN; -fentaNYL citrate 100 MCG/2 ML VIAL IV PRN
[2021-06-27] MEDS ORDERED: LIDOCAINE 2% 2 ML VIAL/AMP(20MG/ML) INFIL ONE (11:53)
[2021-06-27] MEDS ORDERED: fentaNYL citrate 100 MCG/2 ML VIAL ONE (11:53)
[2021-06-27] MEDS ORDERED: ePHEDrine sulfate 50 MG/ML SYR ONE (11:53)
[2021-06-27] MEDS ORDERED: PHENYLEPHRINE HCL 10 MG/ML VIAL ONE (11:53)
[2021-06-27] MEDS ORDERED: MIDAZOLAM HCL 1 MG/ML 2ML VIAL ONE (11:53)
[2021-06-27] MEDS ORDERED: PROPOFOL IV EMULSION 10 MG/ML 20 ML VIAL IV ONE ×2 (11:53→11:54)
[2021-06-27] MEDS ORDERED: ONDANSETRON INJ 2 MG/ML 2 ML VIAL IV PRN ×2 (12:19→16:38)
[2021-06-27] MEDS ORDERED: ATROPINE SULFATE 0.1 MG/ML 10ML SYR IV PRN (12:19)
[2021-06-27] MEDS ORDERED: fentaNYL citrate 100 MCG/2 ML VIAL IV PRN (12:19)
[2021-06-27] MEDS ORDERED: ePHEDrine sulfate 50 MG/ML AMP IV PRN (12:19)
--- NOTE | 2021-06-27 12:39 | History & Physical Bridge Note ---
Date of Service June 27, 2021 History & Physical Bridge Note I have examined the patient, reviewed the History & Physical and in the interval since the performance of the History & Physical I have noted the following changes of clinical significance: no changes noted
[2021-06-27] MEDS ORDERED: ORTHO JOINT ANESTHETIC ONE (12:44)
[2021-06-27] MEDS ORDERED: ONDANSETRON INJ 2 MG/ML 2 ML VIAL ONE (13:31)
--- NOTE | 2021-06-27 15:54 | Anesthesiology Progress Note ---
Date of Service June 27, 2021 Anesthesia Post Procedure Vital Signs Vital Signs: Temp Pulse Pulse Resp BP BP Pulse Ox 06/27/21 15:45 78 16 89/64 L 100 06/27/21 15:35 76 14 95/58 L 100 06/27/21 15:27 37.0 C 72 12 100/64 100 06/27/21 10:10 36.9 C 70 18 104/60 99 Transfer of Care Handoff Completed per policy Notes Mental Status: alert / awake / arousable and participated in evaluation Nausea / Vomiting: adequately controlled Pain: adequately controlled Airway Patency, RR, SpO2: stable & adequate BP & HR: stable & adequate Hydration State: stable & adequate Neuraxial Anesthesia: was administered and sensory block is resolving Anesthetic Complications: no major complications apparent and Pt Satisfied with anesthetic care
--- NOTE | 2021-06-27 16:00 | Operative Report ---
PG Post Operative Report Pre & Post Diagnosis Operation Date: 06/27/21 11:30 Pre-Op Diagnosis: Aseptic Loosening tibial component left knee Post-Op Diagnosis: Aseptic Loosening tibial component left knee I identified the patient and participated in the time-out.: Yes Procedure Operation Date: 06/27/21 11:30 Actual Procedures p Left Total Knee Arthroplasty Revision(Left) with revision of the tibial component and polyethylene exchange- Augusto Gonzalez DO Surgeon Augusto Gonzalez DO Wheel Alignment Technician None Estimated Blood Loss 10 Findings Consistent with Post-Op Diagnosis Specimens None Complications none Disposition Disposition: Recovery Room Indications Margie is a pleasant 50-year-old female who underwent bilateral knee replacements over 2 years ago. She has been having increasing symptoms of her left knee. She came to our office and x-rays have shown the medial component to have completely subsided with aseptic loosening of the tibial tray. After failing extensive conservative treatment, she elected proceed with a revision of her left knee. Description of Procedure On June 27, 2021 [facility] for the above procedure. She was seen in the preoperative holding area and the operative extremity was identified and signed. She was given a preoperative antibiotic and a spinal anesthetic. She was taken back to the operating room and laid on the table in supine position. She was put under basic sedation. The left knee was prepped and draped in sterile fashion. A timeout was done. The patient and the operative extremity was properly identified. A longitudinal incision was made over the previous scar. Dissection was taken down to the extensor mechanism. A medial parapatellar arthrotomy was used. Time was spent removing any scar tissue from the medial lateral gutters. The knee was then exposed. There was no signs of infection. The polyethylene was removed. The femoral component was inspected and there was no signs of loosening. The tibia was then subluxated anteriorly. The tibial tray was easily removed. There was a large defect on the medial side. All soft tissue was removed and cement was removed from the proximal tibia. Once I had good exposure sequential reaming of the tibial canal up to a size 19 reamer was done. Off that reamer a proximal tibial resection guide was placed. A thin cut was done on the lateral side. A 10 mm augment was then cut for the medial side. A 75 mm tibial tray with a 10 mm medial augment seem to be the best fit. There was about 2.5 mm of offset. The proximal tibia was then reamed with a large r eamer. A trial complement was constructed and placed. A 16 mm polyethylene insert was trialed. The knee was reduced and brought through a full range of motion. The knee was felt to be stable. The trials were then removed. The final Biomet 360 revision 75 mm tibia with a 10 mm medial sided augment and a 2.5 mm offset with an 80 mm stem was then cemented into place with Biomet cement. Once cement had hardened several polyethylene trials were used and a size 16 PS plus polyethylene insert seem to be the best fit. The final polywas then snapped into place. The knee was reduced and brought through a full range of motion. The knee was felt to be stable. The wound was then irrigated. A 3- minute Betadine lavage was done. The extensor mechanism was then closed with a combination of #2 FiberWire suture in the superior medial aspect and #1 Vicryl suture. The skin was then closed with 2-0 Vicryl, three oh VueLock suture and lidia. She was then placed in a soft compressive dressing. [facility] She was taken to the post anesthesia care unit in stable condition. She tolerated the procedure well. I attest to the content of the Intraoperative Record and any orders documented therein. Any exceptions are noted below.
--- NOTE | 2021-06-27 16:11 | XRay Report ---
LEFT KNEE 2 VIEWS History: Left total knee arthroplasty. Degenerative arthritis. Postop. FINDINGS: The patient is status post a left total knee arthroplasty. The hardware is intact. No fract ure or dislocation. Skin lidia are in place. IMPRESSION: Left total knee arthroplasty. No evidence for hardware complication. ACT 112: Negative or not required by law. Electronically signed by: Mahesh Smith M.D. 06/27/2021 4:10 PM
[2021-06-27] MEDS ORDERED: NALOXONE HCL 0.4 MG/1 ML VIAL/CARP IV PRN (16:38)
[2021-06-27] MEDS ORDERED: HYDROmorphone INJ 0.5 MG/0.5 ML SYR IV PRN (16:38)
[2021-06-27] MEDS ORDERED: METOCLOPRAMIDE HCL INJ 5 MG/ML 2 ML VIAL IV PRN (16:38)
[2021-06-27] MEDS ORDERED: MAGNESIUM HYDROXIDE SUSP 30 ML UDC PO PRN (16:38)
[2021-06-27] MEDS ORDERED: bisacodyL 10 MG SUPP PR PRN (16:38)
[2021-06-27] MEDS ORDERED: MELATONIN 3 MG TAB PO PRN (16:48)
[2021-06-27] MEDS: SODIUM CHLORIDE 0.9% 1000ML 1,000 ML IV SCH (17:09)
[2021-06-27] MEDS: NICOTINE 21 MG/24 HR TDSY TD SCH (18:03)
[2021-06-27] MEDS: KETOROLAC 30 MG/ML VIAL IV SCH ×2 (18:04→23:15)
[2021-06-27] MEDS: oxyCODONE HCL IR 5 MG TAB (IMMEDIATE RELEASE) PO PRN (20:34)
[2021-06-27] MEDS: ceFAZolin 2000MG 2,000 MG/15 ML SYR IV SCH (20:34)
[2021-06-27] MEDS: ASPIRIN 81 MG ECTAB PO SCH (20:35)
[2021-06-27] MEDS: DOCUSATE SODIUM 100 MG CAP PO SCH (20:36)
[2021-06-27] MEDS ORDERED: rOPINIRole HCL 1 MG TABLET PO SCH (21:00)
[2021-06-27] MEDS ORDERED: CITALOPRAM 20 MG TAB PO SCH (21:00)
[2021-06-27] MEDS ORDERED: SENNA 8.6 MG TAB PO SCH (21:00)
[2021-06-27] MEDS ORDERED: buPROPion XL 300 MG TABCR PO SCH (21:00)
[2021-06-27] MEDS: ACETAMINOPHEN 500 MG TAB PO SCH (21:19)
[2021-06-28] MEDS: SODIUM CHLORIDE 0.9% 1000ML 1,000 ML IV SCH (03:19)
[2021-06-28] MEDS: ceFAZolin 2000MG 2,000 MG/15 ML SYR IV SCH (05:29)
[2021-06-28] MEDS: KETOROLAC 30 MG/ML VIAL IV SCH (05:30)
[2021-06-28] MEDS: ACETAMINOPHEN 500 MG TAB PO SCH ×2 (05:30→05:34)
--- NOTE | 2021-06-28 06:41 | Orthopedic Progress Note ---
Date of Service June 28, 2021 Assessment & Plan (1) Status post revision of total replacement of left knee: Overall she is doing well. She is having much pain in the left knee. She will be seen by physical therapy today for ambulation and range of motion exercises. She is on aspirin for DVT prophylaxis. She can be discharged home later today. She will follow-up with orthopedics in 2 weeks. Anushka Hanson was seen and examined at bedside this morning. Overall she is doing very well. She is not having much pain in the left knee. She has been up and ambulating to the bathroom. She has no complaints.. Review of Systems All systems reviewed & are unremarkable except as noted in HPI & below. Physical Exam Physical examination of the left knee, the dressing is clean and dry. Her leg is out full extension. She has active dorsiflexion and plantarflexion of her left ankle.. Results & Data Results & Data Laboratory Results . Diagnostic Findings Postoperative x-rays of the left knee show the prosthesis to be in anatomic alignment without any evidence of fracture, dislocation, or loosening. PG Care Time/CCT Total # of Minutes Spent Total Time Spent with Patient: Total time spent is greater than 50% in coordination of care (as documented) at patient's floor/unit and/or counseling patient: Coding Level of Care Code 83428 Post Operative Follow-Up Diagnoses Status post revision of total replacement of left knee Z96.652
--- NOTE | 2021-06-28 06:43 | Discharge Summary ---
Date of Service June 28, 2021 Admission HPI (Per Admitting) Margie is a pleasant 50-year-old female who underwent bilateral knee replacements in December 2018. She initially did very well postoperatively. She is back to full activities. Then she began having left knee pain and noticing a varus deformity. X-rays have shown loosening collapse of the tibial plateau. After failing conservative treatment, she elected to proceed with a left revision knee replacement surgery.. Admission Exam (Per Admitting) On physical examination of the left knee, she has a significant varus deformity. She has instability and pain over the tibial plateau.. Principal Diagnosis Same as "Discharge Diagnosis" noted below under Discharge Instructions. Discharge Exam Physical examination of the left knee, the dressing is clean and dry. Her leg is out full extension. She has active dorsiflexion and plantarflexion of her left ankle.. Discharge Data Procedures Performed Operation Date: 06/27/21 11:30 Actual Procedures p Left Total Knee Arthroplasty Revision(Left) - Augusto Gonzalez DO Ordered Studies 06/27/21 05:00 US - OR guided needle placemen Routine Hospital Course (1) Status post revision of total replacement of left knee: On June 27, 2021 Margie underwent a revision left knee replacement without complication. Postoperatively she was started on aspirin for DVT prophylaxis and transferred to general orthopedic floors. Her hospital course was uneventful. On postop day #1 her vital signs were stable and her pain was well controlled. She was able to participate well with physical therapy doing ambulation and range of motion exercises. She was then discharged home. She will follow-up with orthopedics in 2 weeks. PG Care Time/CCT Total # of Minutes Spent Total Time Spent with Patient: Total time spent is greater than 50% in coordination of care (as documented) at patient's floor/unit and/or counseling patient: Discharge Plan Discharge Items Patient Disposition: Home - Home Health Services Reason For Visit: Loosening of Knee Joint Hardware Discharge Diagnosis: Left revision knee replacement Activity: As commented below Non-emergency contact: Surgeon Call non-emergency contact if: your wound has increased redness and your wound has increased drainage Follow-up/Referrals: mAanda Bustamante PA-C [Primary Care Provider] - Diet: Regular Addtl Attending Provider Instructions: Activity and Therapy Recommendations: * If you are using [facility] then therapy will be provided at your home until they feel you have accomplished all of your goals. * If you are using [facility] then Physical Therapy will be provided until they feel you are ready to start Outpatient Physical Therapy. * If you are not using home therapy then Outpatient Physical Therapy should start about 3-5 days from your day of surgery. Therapy will last about 6-10 weeks * It is important not to put a pillow under your knee when you are relaxing or sleeping. It is just as important to make sure you are getting your knee perfectly straight as it is to regain your knee bend. * You were shown a series of exercises in the hospital. Do these exercises three times each day including the exercises you were shown in physical therapy. * Get up and walk several times each day. For the first four weeks, try not to stand or walk for more than one hour at a time. If you do stand or walk for more than one hour, you will not hurt anything, but your leg will likely swell. * As you feel comfortable, you may change from the walker or crutches to a cane and then to independent walking. Medications: * Narcotic You will likely be sent home from the hospital with a prescription for the narcotic pain medication that worked best throughout your stay. * Aspirin Most patients will be required to take Aspirin 81mg twice a day for 6 weeks after surgery. This is obtained [id number] and a prescription is not necessary. * Other medications may be prescribed for specific circumstances. If you have any questions, please call the office at . * Resume previous home medications unless otherwise instructed TEDs/Elastic Stockings: The white elastic stockings help limit swelling and prevent blood clots from forming in your legs.~ The more you wear them, the more they work. Wear them for six weeks. Dressing Care: The dressing can be changed after physical therapy on postop day #1. Daily dry dressing changes for a few days, especially if the incision is still draining some. If the incision is not draining then you may leave the lidia open to air. If there is a little bit of drainage or if the lidia are getting stuck on your clothing then cover the incision with a dry dressing. The lidia will be removed at your 2 week follow-up appointment. Showering: You may shower 5 days from the day of surgery as long as the incision is no longer draining. You may shower with the lidia exposed. Let soapy water run over the lidia and pat them dry. Do not scrub or soak the incision. Things To Watch For: * Drainage from the incision site that occurs more than one week after your surgery. * Increased redness at the incision site. * Fever above 102 degrees Fahrenheit. * Unusual chest pain or shortness of breath. * Call [facility] at with any of the above problems Follow-Up Visit: Follow-up with Dr. Gonzalez's PA (Augusto Tavares) 2-3 weeks after your day of surgery. He will remove your lidia and answer any questions. If you have any additional questions or concerns, Dr Gonzalez is usually in the office at the same time and will be available An appointment was probably scheduled when you signed-up for surgery in the office. If you have any questions call Office Instructions: More detailed instructions as well as Frequently Asked Questions were provided in a folder by our office when you signed-up for surgery. Please review these instructions when you get home. If you have any further questions or concerns, please feel free to call the office at [phone] Pending Studies at Discharge: No Stand-Alone Forms: [facility], Smoking Cessation Medications and DC Order Prescriptions: New oxycodone 5 mg Tablet 5 mg PO Q4H PRN (Reason: pain) Qty: 60 RF: 0 aspirin 81 mg Tablet,Delayed Release (Dr/Ec) 81 mg PO BID 42 Days Qty: 84 RF: 0 Continued (DME) [facility] See Rx Instructions .MEDSUPPLY Qty: 1 RF: 0 buspirone [BuSpar] 5 mg Tablet 10 mg PO QAM RF: 0 multivitamin [Multiple Vitamins] Tablet 1 tab PO QAM RF: 0 ropinirole [Requip] 1 mg Tablet 1 mg PO HS RF: 0 tramadol 50 mg Tablet 50 mg PO UD PRN (Reason: Pain) RF: 0 citalopram [Celexa] 20 mg Tablet 20 mg PO HS RF: 0 bupropion HCl [Wellbutrin XL] 300 mg Tablet Extended Release 24 Hr 300 mg PO HS RF: 0 Slow Fe 142 mg (45 mg iron) Tablet Extended Release 284 mg PO QAM RF: 0 melatonin 1 mg Tablet 1 mg PO HS PRN (Reason: Sleep) RF: 0 Discontinued hydrocodone-acetaminophen [Golf] 5-325 mg tablet 1 tab PO Q6H PRN (Reason: pain) Qty: 20 RF: 0 Discharge Orders: Discharge Order (Routine); Ordered 06/28/21 Ordered By: Augusto Gonzalez Admission Data Admit Date/Time: 06/27/21 15:52 Attending Provider: Augusto Gonzalez Admit Provider: Augusto Gonzalez Primary Care Provider: Amanda Bustamante
[2021-06-28] MEDS: DOCUSATE SODIUM 100 MG CAP PO SCH (07:39)
[2021-06-28] MEDS: NICOTINE 21 MG/24 HR TDSY TD SCH (07:39)
[2021-06-28] MEDS: ASPIRIN 81 MG ECTAB PO SCH (07:39)
[2021-06-28] MEDS ORDERED: dexAMETHasone 4 MG TAB PO SCH (08:00)
[2021-06-28] MEDS ORDERED: FERROUS SULFATE PO SCH (09:00)
[2021-06-28] MEDS ORDERED: busPIRone 5 MG TAB PO SCH (09:00)
[2021-06-28] MEDS ORDERED: MULTIVITAMIN TAB PO SCH (09:00)
[2021-06-28] MEDS: oxyCODONE HCL IR 5 MG TAB (IMMEDIATE RELEASE) PO PRN (09:01)
== END 2021-06-28 11:40 | disposition home health service (06) ==
LOC: 3E 09:40 → ASU 09:40

== ENCOUNTER 2022-09-10 06:03 | Observation (INO) ==
--- NOTE | 2022-08-08 14:43 | PAT Medication Instructions ---
Medication Instructions Date of Service August 08, 2022 Home Medications Medication Instructions Recorded Elkin Sexton #1 ea 05/30/21 oxycodone 5 mg tablet 5 mg PO Q6H PRN pain #30 tabs 07/20/22 multivitamin (Multiple Vitamins tablet) 1 tab PO QAM tramadol 50 mg tablet 50 mg PO TID PRN buspirone 5 mg tablet 10 mg PO BID Elkin Sexton #1 ea 05/30/21 [Rx Confirmed 05/30/21] bupropion HCl 300 mg 24 hr tablet, extended release (Wellbutrin XL) 300 mg PO HS ferrous sulfate 142 mg (45 mg iron) tablet,extended release (Slow Fe) 284 mg PO QAM oxycodone 5 mg tablet 5 mg PO Q6H PRN cyanocobalamin (vitamin B-12) 1,000 mcg/mL injection solution 1,000 mcg IM UD Continue as directed cyanocobalamin (vitamin B-12) 1,000 mcg/mL injection solution 1,000 mcg IM UD (not day of surgery) DO NOT take the morning of surgery multivitamin (Multiple Vitamins tablet) 1 tab PO QAM ferrous sulfate 142 mg (45 mg iron) tablet,extended release (Slow Fe) 284 mg PO QAM Take morning of surgery With a small sip of water, OTHERWISE NOTHING TO EAT OR DRINK AFTER MIDNIGHT: tramadol 50 mg tablet 50 mg PO TID PRN(if needed) buspirone 5 mg tablet 10 mg PO BID oxycodone 5 mg tablet 5 mg PO Q6H PRN(if needed) Take evening before surgery tramadol 50 mg tablet 50 mg PO TID PRN(if needed) buspirone 5 mg tablet 10 mg PO BID bupropion HCl 300 mg 24 hr tablet, extended release (Wellbutrin XL) 300 mg PO HS oxycodone 5 mg tablet 5 mg PO Q6H PRN(if needed) Other Notes If you have any questions please call us at [phone] or [phone] or [phone] or [phone]
--- NOTE | 2022-09-04 12:44 | Anesthesiology Consultation ---
Date of Service September 04, 2022 Assessment & Plan (1) Encounter for pre-operative examination: - COVID screening: Per assessment on 08/08: No known COVID-19 positive contacts or current COVID-19 related symptoms. Travel screen negative. Patient vaccinated. At surgeon discretion if preop Covid testing being done. - S/P Left total knee revision (06/27/21): SAB at L4 (x1 attempt) + PNB at [facility]. No issues noted per post-op anesthesia progress note. Chart Review Chart Review: Acceptable Risk for Surgery and Patient NOT seen in Pre Admission Testing History Surgery Operation Date: 09/10/22 09:00 Proposed Procedures p Revision Right Tibial Component versus Revision Total Knee Arthroplasty - Augusto Gonzalez, Height/Weight Height: 5 ft 9.5 in Weight: 68.492 kg Allergies Allergy/AdvReac Type Severity Reaction Status Date / Time No Known Allergies Allergy Verified 08/08/22 11:38 Medications Home Medications Medication Instructions Recorded Confirmed Last Taken multivitamin (Multiple Vitamins 1 tab PO QAM 12/10/18 08/08/22 01/15/19 07:00 tablet) tramadol 50 mg tablet 50 mg PO TID PRN Pain 12/10/18 08/08/22 06/26/21 15:00 buspirone 5 mg tablet 10 mg PO BID 11/25/20 08/08/22 06/25/21 06:00 Wheeled Walker #1 ea 05/30/21 05/30/21 Unknown bupropion HCl 300 mg 24 hr tablet, 300 mg PO HS 05/31/21 08/08/22 06/26/21 20:00 extended release (Wellbutrin XL) ferrous sulfate 142 mg (45 mg 284 mg PO QAM 05/31/21 08/08/22 06/26/21 20:00 iron) tablet,extended release (Slow Fe) oxycodone 5 mg tablet 5 mg PO Q6H PRN pain #30 tabs 07/20/22 08/08/22 Unknown cyanocobalamin (vitamin B-12) 1,000 mcg IM UD 08/08/22 08/08/22 Unknown 1,000 mcg/mL injection solution oxycodone 5 mg tablet 5 mg PO Q6H PRN pain #30 tabs 08/15/22 Unknown Past Medical History Medical History Anxiety and depression Chronic anemia under surveillance by PCP, hgb typically in the low 10's per PCP Low iron Osteoarthritis Restless leg syndrome Past Family History Family History Mother Family history of breast cancer Father Family history of throat cancer Other No family history of adverse response to anesthesia Past Surgical History Surgical History Fatty tumor Right ankle removal History of bilateral knee arthroplasty B/L TKA (01/16/19): SABx1 attempt at L4-L5 + PNB at [facility] History of gastric bypass 2010 History of tubal ligation S/P revision of total knee Left total knee revision (06/27/21): SAB at L3 (x1 attempt) + PNB at [facility]. No issues noted per post-op anesthesia progress note. Social History Smoking Status: Current every day smoker tobacco type: cigarettes Smoking cigarettes per day: 1/2 PPD x 30 years (intermittent) Do You Dip or Chew Tobacco: No Hx Alcohol Use: No Hx Substance Use: No substance use type: does not use Lab Results Anesthesia Preop Results Results Anesthesia Widget: WBC 4.28 K/ul (4.8-10.8) L 09/03/22 Hgb 12.9 g/dl (12.0-16.0) 09/03/22 Hct 39.0 % (34.1-44.9) 09/03/22 Plt 269 K/uL (130-400) 09/03/22 Na 138 mmol/L (136-145) 09/03/22 K 3.8 mmol/L (3.5-5.1) 09/03/22 Cl 106 mmol/L (98-107) 09/03/22 CO2 28 mmol/L (21-32) 09/03/22 BUN 12 mg/dl (6-23) 09/03/22 Creat 0.62 mg/dl (0.6-1.2) 09/03/22 Glucose Level 85 mg/dl (70-99(Fasting)) 09/03/22 PT 10.6 Seconds (9.0-12.0) 09/03/22 PTT 26.1 Seconds (21.0-31.0) 09/03/22 INR 1.0 (0.9-1.1) 09/03/22 Blood Type A Positive 09/03/22 Antibody Screen NEGATIVE 09/03/22 Testing Electrocardiogram Date: 09/03/22 SR with short WA with PACs at 73bpm. Otherwise normal ECG. Chest X-Ray Date: 09/03/22 Findings: + NAD
--- NOTE | 2022-09-06 07:53 | History & Physical Report ---
Date of Service September 06, 2022 Assessment & Plan (1) Status post revision of total replacement of left knee: We will proceed with a revision right knee replacement surgery. Postoperatively she will be started on aspirin for DVT prophylaxis and kept overnight in the hospital for postoperative medical management. She plans to go to [facility] in [place] upon discharge. History of Present Illness Chief Complaint: Aseptic loosening of the right knee. Primary Care Provider: Amanda Bustamante PA-C Margie is a pleasant 51-year-old female who I did bilateral knee replacements on in 2018. She initially did well. She then began having more and more pain in her left knee. 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 I did a revision of the tibial component and she has done very well with that. Unfortunately, she is now dealing with similar symptoms with the right knee. When she stands for long periods of time or when she walks, she has pain mostly over the medial tibial plateau. She has on and off effusions. Sed rate, CRP, and white blood cell count were negative for infection. X-rays were diagnostic for aseptic loosening of the tibial component. After failing conservative treatment, she elected proceed with a revision right knee replacement. Allergies Allergy/AdvReac Type Severity Reaction Status Date / Time No Known Allergies Allergy Verified 08/08/22 11:38 Home Medications Medication Instructions Recorded Confirmed Type multivitamin (Multiple Vitamins 1 tab PO QAM 12/10/18 08/08/22 History tablet) tramadol 50 mg tablet 50 mg PO TID PRN Pain 12/10/18 08/08/22 History buspirone 5 mg tablet 10 mg PO BID 11/25/20 08/08/22 History Wheeled Walker #1 ea 05/30/21 05/30/21 Rx bupropion HCl 300 mg 24 hr tablet, 300 mg PO HS 05/31/21 08/08/22 History extended release (Wellbutrin XL) ferrous sulfate 142 mg (45 mg 284 mg PO QAM 05/31/21 08/08/22 History iron) tablet,extended release (Slow Fe) oxycodone 5 mg tablet 5 mg PO Q6H PRN pain #30 tabs 07/20/22 08/08/22 Rx cyanocobalamin (vitamin B-12) 1,000 mcg IM UD 08/08/22 08/08/22 History 1,000 mcg/mL injection solution oxycodone 5 mg tablet 5 mg PO Q6H PRN pain #30 tabs 08/15/22 Rx Past Med/Surg History Medical History Anxiety and depression Chronic anemia under surveillance by PCP, hgb typically in the low 10's per PCP Low iron Osteoarthritis Restless leg syndrome Surgical History Fatty tumor Right ankle removal History of bilateral knee arthroplasty B/L TKA (01/16/19): SABx1 attempt at L4-L5 + PNB at [facility] History of gastric bypass 2009 History of tubal ligation S/P revision of total knee Left total knee revision (06/27/21): SAB at L3 (x1 attempt) + PNB at [facility]. No issues noted per post-op anesthesia progress note. Family History Mother Family history of breast cancer Father Family history of throat cancer Other No family history of adverse response to anesthesia Social History Smoking Status: Current every day smoker Cigarettes Per Day: 1/2 PPD x 30 years (intermittent); Second Hand Exposure: No; Hx Alcohol Use: No Hx Substance Use: No Preferred Language: Ukrainian Communication Ability: Effective Chief Bank Examiner Required: No Beliefs That Will Affect Care: None marital status: Current Living Situation: Family Current Living Situation Comment: Lives with granddaughter Feels Safe at Home: Yes Assistive Devices: Contacts, Denture - Upper, Denture - Lower and Glasses Review of Systems All systems reviewed & are unremarkable except as noted in HPI & below. Physical Exam On physical examination the right knee, she has a varus deformity. She is a 1+ effusion. She has tenderness palpation of the distal medial femoral condyle and over the medial joint line.. Constitutional WD/WN, vitals as above Eyes PERRL, conjunctivae normal, anicteric sclerae ENMT external ear and nose normal, oropharynx normal Neck trachea midline, no thyromegaly Respiratory normal respiratory effort, lungs clear to auscultation Cardiovascular RRR, no murmur, no edema Gastrointestinal (Abdomen) normal bowel sounds, soft, nontender, no hepatosplenomegaly Skin no rashes, warm and dry Psychiatric A+Ox3, euthymic affect Results & Data Results & Data Laboratory Results . Diagnostic Findings X-rays of the right knee do show signs of aseptic loosening with some varus collapse of the tibial compartment and some lucency around the cement.. PG Care Time/CCT Total # of Minutes Spent Total Time Spent with Patient: Total time spent is greater than 50% in coordination of care (as documented) at patient's floor/unit and/or counseling patient: Coding Level of Care Code None Diagnoses Status post revision of total replacement of left knee Z96.652
[~2022-09-10 06:03] MED LIST changes: -BUPIVACAINE 0.25% 30 ML VIAL ONE; -BUPIVACAINE 0.5 % 5 MG/1 ML PF 10ML VIAL ONE; +GABAPENTIN 300 MG CAP PO SCH; -GABAPENTIN 600 MG DOSE PO SCH; +ORTHO JOINT MIX INFIL SCH; -ROPIVACAINE 0.5% HCL/PF 150 MG, BUPIVACAINE 0.75% MPF 20 ML, EPINEPHrine 30MG/30ML (OR ... INSTIL SCH
[2022-09-10] MEDS ORDERED: BUPIVACAINE 0.5 % 5 MG/1 ML PF 10ML VIAL ONE (06:30)
[2022-09-10] MEDS ORDERED: ROPIVACAINE 0.5% 5 MG/ML 30 ML VIAL ONE (06:30)
--- NOTE | 2022-09-10 06:34 | History & Physical Bridge Note ---
Date of Service September 10, 2022 History & Physical Bridge Note I have examined the patient, reviewed the History & Physical and in the interval since the performance of the History & Physical I have noted the following changes of clinical significance: no changes noted
[2022-09-10] MEDS ORDERED: ONDANSETRON INJ 2 MG/ML 2 ML VIAL ONE ×2 (07:24→09:55)
[2022-09-10] MEDS ORDERED: MIDAZOLAM HCL 1 MG/ML 2ML VIAL ONE ×2 (07:24→08:51)
[2022-09-10] MEDS ORDERED: LIDOCAINE 2% MPF LOCAL 5 ML VIAL INFIL ONE (07:24)
[2022-09-10] MEDS ORDERED: PROPOFOL IV EMULSION 10 MG/ML 20 ML VIAL IV ONE ×6 (07:24→10:02)
[2022-09-10] MEDS ORDERED: ONDANSETRON INJ 2 MG/ML 2 ML VIAL IV PRN ×2 (07:54→12:09)
[2022-09-10] MEDS ORDERED: ePHEDrine sulfate 50 MG/ML AMP IV PRN (07:54)
[2022-09-10] MEDS ORDERED: HYDROmorphone INJ 1 MG/ML SYRINGE IV PRN (07:54)
[2022-09-10] MEDS ORDERED: ATROPINE SULFATE 0.1 MG/ML 10ML SYR IV PRN (07:54)
[2022-09-10] MEDS ORDERED: ORTHO JOINT ANESTHETIC ONE (08:24)
[2022-09-10] MEDS ORDERED: KETAMINE 50 MG/5 ML SYRINGE ONE (09:23)
[2022-09-10] MEDS ORDERED: GLYCOPYRROLATE 0.2 MG/ML VIAL ONE (09:24)
--- NOTE | 2022-09-10 10:35 | Operative Report ---
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 She was seen in the preoperative holding area and the operative extremity was then fine signed. She is given a preoperative antibiotic and a right adductor nerve block. She was taken back to operative room and laid on the table in supine position. She was put under basic sedation. The right knee was prepped and draped in sterile fashion. A timeout was done. The patient and the operative extremity was properly identified. The previous incision was opened back up. Dissection was taken down to the extensor mechanism. A medial parapatellar arthrotomy was used. Some scar tissue was removed. There was no signs of infection. The patella was subluxed laterally and the knee was flexed. The polyethylene insert was then removed. The femoral component was hit with a bone tamp and a mallet. The femoral component was stable. The tibial component was then exposed. The tibial component was grossly loose and subsided. The tibial component was easily lifted out of the wounds. There was no cement fixation to the undersurface of the tibia. The remainder of the cement that was on the tibia was then removed. Sequential reaming of the tibia was done up to a size 19 reamer. A proximal tibial resection guide was placed and the tibia cut was freshened up. The tibial component measured to be a size 71. A 2.5 mm clawing seem to be the best fit. The boss was then drilled and the wings were punched. The reamer and the trials were removed. The final trial component was assembled on the back table. A 10 mm augment was placed both medially and laterally. The trial was then placed and I was happy with the fit. Several different polyethylene inserts were used and a size 16 seem to be the best fit. The knee was brought through full range of motion and felt to be stable. The trials were removed. The final size 71 Biomet 360 tibial component with a 2.5 mm offset and a 19 mm stem was then assembled on the back table. The implant was then cemented with Biomet cement. Cement was placed on the tibial component as well as around the metaphyseal region. No cement was placed along the distal stem. Once cement had hardened several polyethylene trials were used and a size 16 seem to be the best fit. The final size 16 implant was then snapped into place. The knee was brought through full range of motion and felt to be stable. The wounds then irrigated. Tourniquet was deflated and hemostasis was obtained. The extensor mechanism was closed with #1 Vicryl suture. Skin was closed with 2-0 Vicryl, 3 oh VueLock suture and lidia. She was then placed in a soft compressive dressing. She was then transferred to a hospital bed and taken to the postanesthesia care unit in stable condition. She tolerated the procedure well. Augusto Tavares PA-C, was present for the entire procedure. He was critical for patient positioning, prepping, draping, retraction exposure, wound closure and application of sterile dressing. I attest to the content of the Intraoperative Record and any orders documented t herein. Any exceptions are noted below.
--- NOTE | 2022-09-10 11:21 | XRay Report ---
RIGHT KNEE 2 VIEWS History: Right total knee arthroplasty. Degenerative arthritis. Postop. FINDINGS: The patient is status post a right total knee arthroplasty. The hardware is intact. No frac ture or dislocation. Skin lidia are in place. IMPRESSION: Right total knee arthroplasty. No evidence for hardware complication. ACT 112: Negative or not required by law. Electronically signed by: Mahesh Smith M.D. 09/10/2022 11:19 AM
[2022-09-10] MEDS ORDERED: MAGNESIUM HYDROXIDE SUSP 30 ML UDC PO PRN (12:09)
[2022-09-10] MEDS ORDERED: NALOXONE HCL 0.4 MG/1 ML VIAL/CARP IV PRN (12:09)
[2022-09-10] MEDS ORDERED: bisacodyL 10 MG SUPP PR PRN (12:09)
[2022-09-10] MEDS ORDERED: METOCLOPRAMIDE HCL INJ 5 MG/ML 2 ML VIAL IV PRN (12:09)
[2022-09-10] MEDS ORDERED: HYDROmorphone INJ 0.5 MG/0.5 ML SYR IV PRN (12:09)
[2022-09-10] MEDS: SODIUM CHLORIDE 0.9% 1000ML 1,000 ML IV SCH ×2 (12:19→22:25)
[2022-09-10] MEDS: KETOROLAC 30 MG/ML VIAL IV SCH ×2 (12:55→17:07)
[2022-09-10] MEDS: ACETAMINOPHEN 500 MG TAB PO SCH ×2 (13:25→21:03)
[2022-09-10] MEDS: NICOTINE 21 MG/24 HR TDSY TD SCH (13:25)
[2022-09-10] MEDS: oxyCODONE HCL IR 5 MG TAB (IMMEDIATE RELEASE) PO PRN ×2 (13:50→21:08)
--- NOTE | 2022-09-10 14:42 | Anesthesiology Progress Note ---
Date of Service September 10, 2022 Anesthesia Post Procedure Vital Signs Vital Signs: Temp Pulse Pulse Resp BP Pulse Ox O2 Del Method 09/10/22 14:22 36.5 C 74 16 105/64 98 Room Air 09/10/22 13:23 36.5 C 76 16 102/67 100 Room Air 09/10/22 12:46 36.6 C 77 16 100/67 100 Room Air 09/10/22 12:15 Room Air 09/10/22 12:15 36.7 C 99 H 16 99/62 L 99 Room Air 09/10/22 11:45 36.6 C 84 14 102/64 99 Room Air 09/10/22 11:35 62 16 99/63 L 99 Room Air 09/10/22 11:25 64 17 92/60 L 99 Room Air 09/10/22 11:15 66 21 97/63 L 99 Oxymask 09/10/22 11:05 79 13 100/59 L 98 Oxymask 09/10/22 10:55 36.8 C 83 17 106/63 99 Oxymask 09/10/22 06:46 36.6 C 68 18 106/73 100 Room Air O2 Flow Rate 09/10/22 14:22 09/10/22 13:23 09/10/22 12:46 09/10/22 12:15 09/10/22 12:15 09/10/22 11:45 09/10/22 11:35 09/10/22 11:25 09/10/22 11:15 6 09/10/22 11:05 6 09/10/22 10:55 6 09/10/22 06:46 Pain Intensity Left Knee: Pain Intensity: 4 Transfer of Care Handoff Completed per policy Notes Mental Status: alert / awake / arousable Patient Amnestic to Procedure: Yes Nausea / Vomiting: adequately controlled Pain: adequately controlled Airway Patency, RR, SpO2: stable & adequate BP & HR: stable & adequate Hydration State: stable & adequate Anesthetic Complications: no major complications apparent
[2022-09-10] MEDS: ceFAZolin 2000MG 2,000 MG/15 ML SYR IV SCH (17:07)
[2022-09-10] MEDS ORDERED: SENNA 8.6 MG TAB PO SCH (21:00)
[2022-09-10] MEDS ORDERED: buPROPion XL 300 MG TABCR PO SCH (21:00)
[2022-09-10] MEDS: busPIRone 5 MG TAB PO SCH (21:02)
[2022-09-10] MEDS: ASPIRIN 81 MG ECTAB PO SCH (21:02)
[2022-09-10] MEDS: DOCUSATE SODIUM 100 MG CAP PO SCH (21:03)
[2022-09-11] MEDS: KETOROLAC 30 MG/ML VIAL IV SCH ×2 (00:30→06:07)
[2022-09-11] MEDS: ceFAZolin 2000MG 2,000 MG/15 ML SYR IV SCH (00:30)
[2022-09-11] MEDS: ACETAMINOPHEN 500 MG TAB PO SCH (06:06)
[2022-09-11] MEDS: oxyCODONE HCL IR 5 MG TAB (IMMEDIATE RELEASE) PO PRN (06:07)
--- NOTE | 2022-09-11 06:22 | Orthopedic Progress Note ---
Date of Service September 11, 2022 Assessment & Plan (1) Status post revision of total replacement of right knee: Overall she is doing very well. She is not any much pain in the right knee. She has been up and ambulating to the bathroom. She will be seen by physical therapy today for ambulation and range of motion exercises. She is on aspirin for DVT prophylaxis. She can be discharged home later today. She will follow- up orthopedics in 2 weeks. Anushka Hanson was seen and examined at bedside this morning. Overall she is doing very well. She is not having much pain in the right knee. She has been up and ambulating to the bathroom. She has no complaints.. Review of Systems All systems reviewed & are unremarkable except as noted in HPI & below. Physical Exam On physical examination the right knee, the dressing is clean and dry. Her leg is out full extension. She has active dorsiflexion plantarflexion of her right ankle.. Results & Data Results & Data Laboratory Results . Diagnostic Findings Postoperative x-rays of the right knee show the prosthesis to be in anatomic alignment without any evidence of fracture, screws, or loosening. PG Care Time/CCT Total # of Minutes Spent Total Time Spent with Patient: Total time spent is greater than 50% in coordination of care (as documented) at patient's floor/unit and/or counseling patient: Coding Level of Care Code 37123 Post Operative Follow-Up Diagnoses Status post revision of total replacement of right knee Z96.651
--- NOTE | 2022-09-11 06:23 | Discharge Summary ---
Date of Service September 11, 2022 Admission HPI (Per Admitting) Margie is a pleasant 51-year-old female who I did bilateral knee replacements on in 2019. She initially did well. She then began having more and more pain in her left knee. 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 I did a revision of the tibial component and she has done very well with that. Unfortunately, she is now dealing with similar symptoms with the right knee. When she stands for long periods of time or when she walks, she has pain mostly over the medial tibial plateau. She has on and off effusions. Sed rate, CRP, and white blood cell count were negative for infection. X-rays were diagnostic for aseptic loosening of the tibial component. After failing conservative treatment, she elected proceed with a revision right knee replacement. Admission Exam (Per Admitting) On physical examination the right knee, she has a varus deformity. She is a 1+ effusion. She has tenderness palpation of the distal medial femoral condyle and over the medial joint line.. Principal Diagnosis Same as "Discharge Diagnosis" noted below under Discharge Instructions. Discharge Exam On physical examination the right knee, the dressing is clean and dry. Her leg is out full extension. She has active dorsiflexion plantarflexion of her right ankle.. Discharge Data Procedures Performed Operation Date: 09/10/22 08:50 Actual Procedures p Revision Right Tibial Component, Cemented(Right) - Augusto Gonzalez DO Ordered Studies 09/10/22 05:00 US - OR guided needle placemen Routine Hospital Course (1) Status post revision of total replacement of right knee: On September 10, 2022 Margie arrived at [facility] and underwent a revision right knee replacement without complication. She had a spinal anesthetic. Postoperatively she was started on aspirin for DVT prophylaxis and transferred to the general orthopedic floors. Her hospital course was uneventful. On postop day #1, her vital signs were stable and her pain was well controlled. She was able to participate well with physical therapy doing ambulation and range of motion exercises. She was then discharged home. She will follow with orthopedics in 2 weeks. PG Care Time/CCT Total # of Minutes Spent Total Time Spent with Patient: Total time spent is greater than 50% in coordination of care (as documented) at patient's floor/unit and/or counseling patient: Discharge Plan Discharge Items Patient Disposition: Home - Home Health Services Reason For Visit: Painful Loosening Right Total Knee Arthroplasty Discharge Diagnosis: Revision right knee replacement Activity: Per Instructions section Non-emergency contact: Surgeon Call non-emergency contact if: your wound has increased redness and your wound has increased drainage Follow-up/Referrals: Amanda Bustamante PA-C [Primary Care Provider] - Diet: Regular Addtl Attending Provider Instructions: Activity and Therapy Recommendations: * If you are using [facility] then therapy will be provided at your home until they feel you have accomplished all of your goals. * If you are using [facility] then Physical Therapy will be provided until they feel you are ready to start Outpatient Physical Therapy. * If you are not using home therapy then Outpatient Physical Therapy should start about 3-5 days from your day of surgery. Therapy will last about 6-10 weeks * It is important not to put a pillow under your knee when you are relaxing or sleeping. It is just as important to make sure you are getting your knee perfectly straight as it is to regain your knee bend. * You were shown a series of exercises in the hospital. Do these exercises three times each day including the exercises you were shown in physical therapy. * Get up and walk several times each day. For the first four weeks, try not to stand or walk for more than one hour at a time. If you do stand or walk for more than one hour, you will not hurt anything, but your leg will likely swell. * As you feel comfortable, you may change from the walker or crutches to a cane and then to independent walking. Medications: * Narcotic You will likely be sent home from the hospital with a prescription for the narcotic pain medication that worked best throughout your stay. * Aspirin Most patients will be required to take Aspirin 81mg twice a day for 6 weeks after surgery. This is obtained [id number] and a prescription is not necessary. * Other medications may be prescribed for specific circumstances. If you have any questions, please call the office at . * Resume previous home medications unless otherwise instructed TEDs/Elastic Stockings: The white elastic stockings help limit swelling and prevent blood clots from forming in your legs.~ The more you wear them, the more they work. Wear them for six weeks. Dressing Care: The dressing can be changed after physical therapy on postop day #1. Daily dry dressing changes for a few days, especially if the incision is still draining some. If the incision is not draining then you may leave the lidia open to air. If there is a little bit of drainage or if the lidia are getting stuck on your clothing then cover the incision with a dry dressing. The lidia will be removed at your 2 week follow-up appointment. Showering: You may shower 5 days from the day of surgery as long as the incision is no longer draining. You may shower with the lidia exposed. Let soapy water run over the lidia and pat them dry. Do not scrub or soak the incision. Things To Watch For: * Drainage from the incision site that occurs more than one week after your surgery. * Increased redness at the incision site. * Fever above 102 degrees Fahrenheit. * Unusual chest pain or shortness of breath. * Call [facility] at with any of the above problems Follow-Up Visit: Follow-up with Dr. Gonzalez's PA (Augusto Tavares) 2-3 weeks after your day of surgery. He will remove your lidia and answer any questions. If you have any additional questions or concerns, Dr Gonzalez is usually in the office at the same time and will be available An appointment was probably scheduled when you signed-up for surgery in the office. If you have any questions call Office Instructions: More detailed instructions as well as Frequently Asked Questions were provided in a folder by our office when you signed-up for surgery. Please review these instructions when you get home. If you have any further questions or concerns, please feel free to call the office at [phone] Pending Studies at Discharge: No Stand-Alone Forms: My [facility] Medications and DC Order Prescriptions: New oxycodone-acetaminophen 5-325 mg tablet 1 tab PO Q6H PRN (Reason: pain) Qty: 30 0RF aspirin [Adult Aspirin Regimen] 81 mg tablet,delayed release (DR/EC) 81 mg PO BID Qty: 84 0RF Continued (DME) Wheeled Walker Misc See Rx Instructions .MEDSUPPLY Qty: 1 0RF Rx Instructions: As directed buspirone 5 mg Tablet 10 mg PO BID multivitamin [Multiple Vitamins] Tablet 1 tab PO QAM tramadol 50 mg Tablet 50 mg PO TID PRN (Reason: Pain) bupropion HCl [Wellbutrin XL] 300 mg Tablet Extended Release 24 Hr 300 mg PO HS Slow Fe 142 mg (45 mg iron) Tablet Extended Release 284 mg PO QAM cyanocobalamin (vitamin B-12) [Vitamin B-12] 1,000 mcg/mL Solution 1,000 mcg IM UD Discontinued oxycodone 5 mg tablet 5 mg PO Q6H PRN (Reason: pain) Qty: 30 0RF Discharge Orders: Discharge Order (Routine); Ordered 09/11/22 Ordered By: Augusto Gonzalez Admission Data Admit Date/Time: 09/10/22 10:59 Attending Provider: Augusto Gonzalez Admit Provider: Augusto Gonzalez Primary Care Provider: Amanda Bustamante
[2022-09-11] MEDS ORDERED: dexAMETHasone 4 MG TAB PO SCH (08:00)
[2022-09-11] MEDS: ASPIRIN 81 MG ECTAB PO SCH (08:20)
[2022-09-11] MEDS: busPIRone 5 MG TAB PO SCH (08:21)
[2022-09-11] MEDS: DOCUSATE SODIUM 100 MG CAP PO SCH (08:21)
[2022-09-11] MEDS: NICOTINE 21 MG/24 HR TDSY TD SCH (08:25)
[2022-09-11] MEDS ORDERED: MULTIVITAMIN TAB PO SCH (09:00)
== END 2022-09-11 11:43 | disposition home health service (06) ==
LOC: ASU 06:03 → 3E 06:03